=== PATIENT | male | born 1950 | race Native Hawaiian/Other Pacific Islander ===

== ENCOUNTER 2023-01-11 14:39 | Emergency (ER) | payer OTHER ==
[~2023-01-11] VITALS: Ht 167.6 cm; Wt 85.3 kg
[2023-01-11 14:39] VITALS: TEMP 97.9
[~2023-01-11 14:39] MED LIST: DIPH50IN IM; HALO5INJ3 IM
[2023-01-11 15:27] LABS: PLATELET COUNT 279 K/uL (142-355)
[2023-01-11 15:43] LABS: POTASSIUM 3.5 mmol/L (3.6-5.2)
[2023-01-11] MEDS ORDERED: LIPITOR40 MG PO (17:09)
[2023-01-11] MEDS ORDERED: DIVALPROEX125 MG PO (17:10)
[2023-01-11] MEDS ORDERED: FLONASE AL50 MCG/ACT NAS (17:11)
[2023-01-11] MEDS ORDERED: GLUCAGON EMERGEN1 MG IM (17:12)
[2023-01-11] MEDS ORDERED: LIDOPATCH TOP (17:14)
[2023-01-11] MEDS ORDERED: FURO20TA67 PO (17:14)
[2023-01-11] MEDS ORDERED: MELATONIN3 M2 PO (17:15)
[2023-01-11] MEDS ORDERED: METO50TA27 PO (17:16)
[2023-01-11] MEDS ORDERED: METFORMIN HYD1000 MG PO (17:16)
[2023-01-11] MEDS ORDERED: MOBIC7.5 M1 PO (17:17)
[2023-01-11] MEDS ORDERED: NEURONTIN 100M100 MG PO (17:17)
[2023-01-11] MEDS ORDERED: FAMO20TA4 PO (17:18)
[2023-01-11] MEDS ORDERED: TRILEPTAL150 MG PO ×2 (17:18)
[2023-01-11] MEDS ORDERED: SPIRONOLACT25 MG PO (17:19)
[2023-01-11] MEDS ORDERED: CLOP75TA2 PO (17:19)
[2023-01-11] MEDS ORDERED: RISP0.5T2 PO (17:19)
[2023-01-11] MEDS ORDERED: VITAMIN B-121000 MC2 PO (17:20)
[2023-01-11] MEDS ORDERED: TYLENOL325 MG PO (17:20)
[2023-01-11] MEDS ORDERED: VITAMIN D350000 UNIT PO ×2 (17:22→17:23)
[2023-01-28] MEDS ORDERED: ACET-206 PO (11:33)
[2023-01-28] MEDS ORDERED: Atorvastatin Calcium PO (11:33)
[2023-01-28] MEDS ORDERED: DIVALPROEX250 MG PO (11:34)
[2023-01-28] MEDS ORDERED: CLOP75TA2 PO (11:34)
[2023-01-28] MEDS ORDERED: VITAMIN B-121000 MCG PO (11:34)
[2023-01-28] MEDS ORDERED: FAMOTIDINE20 MG PO (11:34)
[2023-01-28] MEDS ORDERED: Flonase Nasal Inhale NAS (11:34)
[2023-01-28] MEDS ORDERED: FURO20TA67 PO (11:35)
[2023-01-28] MEDS ORDERED: LIDOPATCH TOP (11:35)
[2023-01-28] MEDS ORDERED: GABA100C2 PO (11:35)
[2023-01-28] MEDS ORDERED: MELOXICAM7.5 MG PO (11:36)
[2023-01-28] MEDS ORDERED: MAGNSUS68 PO (11:36)
[2023-01-28] MEDS ORDERED: METF500T PO (11:36)
[2023-01-28] MEDS ORDERED: OXCARBAZEPIN150 MG PO ×2 (11:37→11:38)
[2023-01-28] MEDS ORDERED: OLANZAPINE5 MG PO (11:37)
[2023-01-28] MEDS ORDERED: METO50TA27 PO (11:37)
[2023-01-28] MEDS ORDERED: SPIR50TA8 PO (11:38)
== END 2023-01-11 16:08 | disposition still patient (30) ==
LOC: ED 14:39
PROVIDERS: Family Medicine
DX: R45.1 Restlessness and agitation (principal); F32.A Depression, unspecified; Z02.79 Encounter for issue of other medical certificate
CPT/HCPCS: 80053; 81000; 85027; 87635; 93005; 99283; U0003